=== PATIENT | female | born 2000 | race Caucasian/White ===

== ENCOUNTER 2022-08-08 19:37 | Emergency (ER) | payer BC ==
[2022-08-08] MEDS ORDERED: Ibuprofen 600 MG Tab PO ONE (19:44)
== END 2022-08-08 20:40 | disposition home or self-care (01) ==
LOC: FB.ED 19:37
DX: S63.91XA Sprain of unspecified part of right wrist and hand, initial encounter (principal); W23.1XXA Caught, crushed, jammed, or pinched between stationary objects, initial encounter
CPT/HCPCS: 73130; 99281; 99283; A9270